=== PATIENT | male | born 1970 | race Caucasian/White ===

== ENCOUNTER 2022-05-18 16:38 | Emergency (ER) | payer MEDICAID ==
[~2022-05-18] VITALS: Ht 177.8 cm; Wt 83.9 kg
[2022-05-18 16:53] VITALS: BP 159/79
[2022-05-18] MEDS ORDERED: ACETAMINOPHEN EXTRA STRENGTH 500 MG TAB PO ONE (17:00)
--- NOTE | 2022-05-18 17:01 | NUR ---
RECEIVED PATIENT FROM TRIAGE. PATIENT IS ALERT ADN ORIENTED X 4, NO S/S OF ACUTE DISTRESS. WITH COMPLAINTS OF RIGHT SHOULDER AND ARM PAIN THAT STARTED LAST NIGHT. PATIENT DENIES TRAUMA, NO SWELLING/DEFORMITY OR DISLOCATION NOTED. [facility] ARE INTACT. WILL CONTINUE TO MONITOR
[2022-05-18] MEDS ORDERED: NAPR-54 PO (17:31)
[2022-05-18 17:53] VITALS: BP 159/79
--- NOTE | 2022-05-18 17:54 | NUR ---
Patient discharged with v/s stable. Written and verbal after care instructions ABOUT SHOULDER PAIN AND TENDINITIS given and explained. Patient alert, oriented and verbalized understanding of instructions. Ambulatory with steady gait. All questions addressed prior to discharge. ID band removed. Patient advised to follow up with PMD. Rx of NAPROSYN given. Patient educated on indication of medication including possible reaction and side effects. Opportunity to ask questions provided and answered.
[2022-05-19] MEDS ORDERED: ACET-5629 PO (08:45)
[2022-05-19] MEDS ORDERED: GABA300C PO (08:45)
== END 2022-05-18 17:54 | disposition home or self-care (01) ==
LOC: MED 16:38
DX: M25.511 Pain in right shoulder (principal)
CPT/HCPCS: 73030; 99283

== ENCOUNTER 2022-05-19 07:59 | Emergency (ER) | payer MEDICAID ==
[~2022-05-19] VITALS: Ht 190.5 cm; Wt 95.3 kg
[~2022-05-19 07:59] MED LIST: NAPR-54 PO
[2022-05-19 08:08] VITALS: BP 159/86
--- NOTE | 2022-05-19 08:11 | NUR ---
AMBULATED TO BED 6
--- NOTE | 2022-05-19 08:14 | NUR ---
52/M PRESENTS TO ED WITH C/O RIGHT SHOULDER PAIN, STATES HE WAS SEEN HERE YESTERDAY FOR SAME SYMPTOMS AND DX WITH TENDONITIS AND GIVEN RX OF NAPROSYN, STATING PAIN HAS WORSENED OVER NIGHT. DENIES ANY INJURY OR TRAUMA SINCE BEING SEEN YESTERDAY.
--- NOTE | 2022-05-19 08:27 | NUR ---
Dr. Tijerina evaluating patient at bedside.
[2022-05-19] MEDS ORDERED: KETOROLAC 30 MG/ML VIAL IM ONE (08:35)
[2022-05-19] MEDS ORDERED: GABAPENTIN 300 MG CAP PO ONE (08:35)
[2022-05-19] MEDS ORDERED: GABA300C PO (08:45)
[2022-05-19] MEDS ORDERED: ACET-5629 PO (08:45)
[2022-05-19 09:14] VITALS: BP 154/84
--- NOTE | 2022-05-19 09:14 | NUR ---
Patient discharged with v/s stable. Written and verbal after care instructions given. Patient alert, oriented and verbalized understanding of instructions. Ambulatory with steady gait. All questions addressed prior to discharge. ID band removed. Patient advised to follow up with PMD. Rx of Neurontin and Percocet given. Opportunity to ask questions provided and answered.
--- NOTE | 2022-05-19 09:15 | NUR ---
The patient's care was reviewed and supervised by Kat Melo RN.
== END 2022-05-19 09:14 | disposition home or self-care (01) ==
LOC: MED 07:59
DX: M75.41 Impingement syndrome of right shoulder (principal); J45.909 Unspecified asthma, uncomplicated; Z98.890 Other specified postprocedural states; Z79.899 Other long term (current) drug therapy; Z79.891 Long term (current) use of opiate analgesic; Z79.1 Long term (current) use of non-steroidal anti-inflammatories (NSAID)
CPT/HCPCS: 96372; 99283; J1885